=== PATIENT | female | born 1960 | race Caucasian/White ===

== ENCOUNTER 2024-10-09 10:47 | Outpatient (AMB) | payer BC, SELFPAY ==
--- NOTE | 2024-10-09 10:58 | AMB.GYNCLNOT ---
Vital Signs 10/09/24 10:59 Height 1.63 m Height Method Stated Weight 72.178 kg Weight Measurement Method Standing Scale BMI 27.3 BP 109/69 Blood Pressure Source Automatic Cuff Blood Pressure Location Left Upper Arm Position Sitting Respiration 18 Pulse 67 Pulse Source Monitor Temp 97.2 F Temp Source Oral Pulse Oximetry (%) 97 Oxygen Delivery Method Room Air Allergies/Home Meds Allergies & Medications Allergies No Known Allergies Allergy (Verified 10/09/24 11:03) Medication Reconciliation clonidine HCl 0.1 mg tablet,extended release,12 hr 0.1 mg PO QHS 10/09/24 [History Confirmed 10/09/24] escitalopram oxalate 20 mg tablet 20 mg PO QDAY 10/09/24 [History Confirmed 10/09/24] levothyroxine 50 mcg capsule 50 mcg PO QDAY 10/09/24 [History Confirmed 10/09/24] linaclotide 145 mcg capsule (Linzess) 145 mcg PO QAM 10/09/24 [History Confirmed 10/09/24] estradiol 0.05 mg/24 hr weekly transdermal patch 1 patch transdermal QWEEK 10/21/24 [History] Intake Visit Data Collection New Patient or Established: New Patient (never been to [facility]) Reason for Visit:: Annual wellness exam Seen by Clinical Staff ONLY (RN/MA): No 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 Required: No Do You Feel Safe at Home: Yes Authorities Contacted: N/A PCP or OBGYN visit in last 3 months: No Hx Now: No Are you currently on any form of Control: No Pain Present Currently: No Pain Scale Used: Chiang-Torres/Numerical Pain scale:: 0 Smoking Status Smoking Status: Never smoker 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 Menstrual regularity: irregular Monthly: No Age at menarche: 14 Menopausal: Yes Currently sexually active: Yes 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 Cotter and he did recent blood work on her. She had a colon screening June 2024 Questionnaires Covid-19 Vaccine Questionnaire Has patient been vacinated for Covid-19 Have you been vacinated for Covid-19: Yes PHQ-9 PHQ-2 Over the last 2 weeks, how often have you been bothered by any of the following problems? 1. Little interest or pleasure in doing things: not at all 2. Feeling down, depressed, or hopeless: not at all Total score: 0 PHQ-9 3. Trouble falling or staying asleep, or sleeping too much: Not at all 4. Feeling tired or having little energy: Not at all 5. Poor appetite or overeating: Not at all 6. Feeling bad about yourself - or that you are a failure or have let yourself or your family down: Not at all 7. Trouble concentrating on things, such as reading the newspaper or watching television: Not at all 8. Moving or speaking so slowly that other people could have noticed? - Or the opposite - being so fidgety or restless that you have been moving around a lot more than usual: not at all 9. Thoughts that you would be better off or of hurting yourself in some way: Not at all Total score: 0 If you checked off any problems, how difficult have these problems made it for you to do your work, take care of things at home, or get along with other people?: not difficult at all Source: Developed by Drs. Malik Carlson, Rehana Lee, Davon Brian and colleagues, with an educational lis from [employer]. Depression screen completed yes Social History Living Situation History Marital Status: Lives With: Family Housing: House Housing Other:: Patient is medically retired . She has a 43 y/o son her has 7 kids Tobacco History Smoking Status: Never smoker Second Hand Smoke Exposure: No Alcohol History Alcohol Intake: Never Domestic Abuse History Do You Feel Safe at Home: Yes Past Medical History Past Medical History Have you ever been diagnosed with any of the following: Cardiology Problems Hypertension: Yes Endocrine Problems Hypothyroidism: Yes Surgical History Hysterectomy: Yes History of Present Illness HPI Narrative The patient is a 64-year-old history of one vaginal delivery 43 years ago. She is a patient of mine from [place] presents for an annual exam. Of note she has had a partial hysterectomy in the past. She has her ovaries. She also has had 2 bladder lift type surgeries. She is going to release her medical records but I do not have them today. She is on estradiol patch 0.[address] Cotter is prescribing this for her. 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 She is reporting occasional incontinence. She also is still getting her breast dealt with. She had some type of breast implant placement a long time ago and then they have been reconstructing them over the years secondary to scar tissue. She most recently has been in [place] for some type of breast surgery. I have no records. The patient denies hot flashes or abnormal discharge. She is with no new sexual contacts. Review of Systems Review of Systems Narrative Review of Systems: No hot flashes, no night sweats. No pelvic pain. She has occasional incontinence. Family history is only significant for elevated cholesterol and elevated blood pressure no cancers. Exam General General Appearance: alert, in no apparent distress, comfortable, cooperative, healthy appearing, well developed and well groomed Neck Neck exam: Present normal inspection, full ROM and trachea midline Chest Chest inspection: Present normal inspection and symmetric chest wall rise Exp Chest Breast: bilateral: other (Multiple scars present) Resp Respiratory exam: Present normal lung sounds bilaterally Card Cardiovascular exam: Present regular rate, normal rhythm and normal heart sounds Abdominal Abdominal exam: Present soft, normal bowel sounds and scar (Multiple scars present) External exam: Present normal external exam Speculum exam: Present normal speculum exam (Cuff intact) and other (No atrophic vaginitis present) Bimanual exam: Present normal bimanual exam (uterus and cervix surgically absent, no adnexal masses or tenderness) Psych Psychiatric exam: Present normal affect and normal mood Skin Skin exam: Present warm, dry, intact and normal color Office Procedures OB Clinic LOC & Office Proc's Nursing/Assessment Patient Status: Initial/New Patient OB Clinic Nursing Assessment: BP Monitoring, Update PMH in EMR and Vital Signs OB Clinic Coordination of Care: Education Complex Pt/Fam, Consent,records obtained, informed consent, Lab and Imaging orders, Results/Orders obtained and Staff clarify orders Miscellaneous Interventions: Breast Exam and Pelvic/Pap Smear Set up New Patient Charge New Patient Point Assignment: 1144 New Patient Point Charge: MANAGER UTILITIES Level 4 ([id number]) In Clinic Procedures Pap Smear: Yes Assessment & Plan Diagnosis / Problem List (1) Women's annual routine gynecological examination: Status: Acute Assessment and Plan: Pap with cotesting for HPV performed breast exam done encouraged patient has a mammogram scheduled. She will follow-up yearly or as needed. She will continue her patch with Dr. Cotter. I recommended no further bladder surgeries at this time and warned her about the potential for scar tissue increased pelvic pain and a complicated surgery. Patient will keep an eye on the incontinence for now. 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
[2024-10-09 10:59] VITALS: BP 109/69; PULSE 67; RESP 18; TEMP 36.2; O2SAT 97; BMI 27.3
== END 2024-10-09 11:50 | disposition home or self-care (01) ==
LOC: HODSOBC 10:47
PROVIDERS: PCP Obstetrics & Gynecology; Referring Provider Obstetrics & Gynecology; Supervising Provider Obstetrics & Gynecology; Visit Provider Obstetrics & Gynecology
DX: Z01.419 Encounter for gynecological examination (general) (routine) without abnormal findings (principal); Z11.51 Encounter for screening for human papillomavirus (HPV)
CPT/HCPCS: 99204; Q0091; G0463